=== PATIENT | female | born 1950 | race Caucasian/White ===

== ENCOUNTER → 2023-04-02 11:48 | Outpatient (BNVA) | payer MEDICARE, OTHER, SELFPAY | PROVIDERS: Family Provider Family Medicine; PCP Family Medicine; Visit Provider Nurse Practitioner | DX: J06.9 Acute upper respiratory infection, unspecified (principal); R06.89 Other abnormalities of breathing; Z79.620 Long term (current) use of immunosuppressive biologic | CPT/HCPCS: 71046 ==

== ENCOUNTER → 2024-12-15 09:17 | Outpatient (BNVA) | payer MEDICARE, OTHER, SELFPAY | PROVIDERS: Family Provider Family Medicine; PCP Family Medicine; Visit Provider Nurse Practitioner | DX: R05.1 Acute cough (principal); R60.0 Localized edema; I77.810 Thoracic aortic ectasia; Q25.46 Tortuous aortic arch; J84.10 Pulmonary fibrosis, unspecified; M47.814 Spondylosis without myelopathy or radiculopathy, thoracic region | CPT/HCPCS: 71046 ==